=== PATIENT | female | born 1935 | race Hispanic/Latino ===

== ENCOUNTER 2016-12-10 16:53 | Emergency (ER) | payer MEDICARE ==
[2016-12-10 17:01] VITALS: BMI 35.2
[2016-12-10 17:04] VITALS: TEMP 98.3
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
[2016-12-10 17:39] VITALS: BP 132/67
[2016-12-10 17:42] VITALS: PULSE 94; RESP 16; O2SAT 98
== END 2016-12-10 17:44 | disposition home or self-care (01) ==
LOC: ED 16:53
DX: L60.8 Other nail disorders (principal)

== ENCOUNTER 2017-01-26 10:02 | Inpatient (IN) | payer MEDICARE, OTHER ==
[2017-01-26 10:22] VITALS: BMI 36.1
[2017-01-26 10:43] LABS: BASO # 0.05 K/mm3 (0.0-2.0); BASO % 0.3 % (0.0-3.0); EOS # 0.2 (0.0-0.7); EOS % 0.9 % (1.5-5.0); GRAN # 13.47 (1.4-6.5); GRAN % 73.7 % (50.0-68.0); HEMATOCRIT 37.6 % (36.0-48.0); LYMPH % 16.1 % (22.0-35.0); MEAN CELL VOLUME 94.2 fl (80.0-105.0); MEAN CORPUSCULAR HEMOGLOBIN 32.1 pg (25.0-35.0); MEAN PLATELET VOLUME 10.3 fl (7.0-11.0); MONO # 1.7 (0.1-0.6); RED CELL DISTRIBUTION WIDTH 14.2 % (11.5-14.5); WHITE BLOOD COUNT 18.3 10^3/ul (4.5-11.0)
[2017-01-26 10:52] LABS: ALB/GLOB RATIO 1.4 (1.1-1.8); ALKALINE PHOSPHATASE 71 U/L (38-126); ALT/SGPT 40 U/L (7-56); AST/SGOT 22 U/L (14-36); BILIRUBIN,TOTAL 0.4 mg/dL (0.2-1.3); BLOOD UREA NITROGEN 14 mg/dL (7-21); CALCIUM 9.1 mg/dL (8.4-10.5); CARBON DIOXIDE 22 mmol/L (21-33); CHLORIDE 104 mmol/L (98-107); GFR AFRICAN-AMERICAN > 60; GLUCOSE,RANDOM 100 mg/dL (70-110); POTASSIUM 4.2 mmol/L (3.6-5.0); SODIUM 138 mmol/L (132-148); TOTAL PROTEIN 6.9 g/dL (5.8-8.3)
[2017-01-26 11:10] LABS: PARTIAL THROMBOPLASTIN TIME 39.5 Seconds (23.7-30.8)
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
[2017-01-26 11:22] LABS: INR 4.09 (0.93-1.08)
--- NOTE | 2017-01-26 12:27 | US ---
PROCEDURE: Left lower extremity venous US HISTORY: Leg pain and swelling. Evaluate for DVT. PHYSICIAN(S): Roni Rosales MD. TECHNIQUE: Duplex sonography and color-flow Doppler with graded compression were used to evaluate the deep venous system of the left lower extremity. The exam is somewhat limited by edema FINDINGS: The visualized deep venous system of the left lower extremity is sonographically normal and compressible. Normal wave forms and augmentation are seen. There is no sonographic evidence for deep venous thrombosis in the visualized segments of the left lower extremity. IMPRESSION: 1. No sonographic evidence for deep venous thrombosis in the visualized segments of the left lower extremity.
--- NOTE | 2017-01-26 12:43 | RAD ---
PROCEDURE: Left Hip and pelvis X-ray Radiographs. HISTORY: hip pain COMPARISON: None. FINDINGS: BONES: Normal. No fracture. JOINTS: Normal. SOFT TISSUES: Normal. OTHER FINDINGS: None. IMPRESSION: Normal left hip radiographs.
--- NOTE | 2017-01-26 12:44 | RAD ---
PROCEDURE: Left Knee Radiographs. HISTORY: Pain. COMPARISON: None. FINDINGS: BONES: Normal. No fracture. JOINTS: Normal. No osteoarthritis. JOINT EFFUSION: None. OTHER FINDINGS: The patellar view is unremarkable IMPRESSION: Normal radiographs of the left knee.
[2017-01-26 12:45] LABS: URINE BILIRUBIN NEGATIVE (NEGATIVE); URINE BLOOD TRACE-INTACT (NEGATIVE); URINE GLUCOSE (UA) NEGATIVE (NEGATIVE); URINE KETONE NEGATIVE (NEGATIVE); URINE LEUKOCYTE ESTERASE TRACE Leu/uL (NEGATIVE); URINE PROTEIN TRACE mg/dL (<30 mg/dL); URINE UROBILINOGEN 0.2 E.U./dL (<1 E.U./dL)
[2017-01-26 12:46] LABS: URINE COLOR YELLOW (YELLOW)
[2017-01-26 13:02] LABS: URINE APPEARANCE SL CLOUDY (CLEAR); URINE BACTERIA FEW (NEG); URINE RBC 0 - 2 /hpf (0-2)
[2017-01-26] MEDS ORDERED: cefTRIAXone 1 gm 1 GM/100 ML BAG IVPB STA (14:20)
[2017-01-26] MEDS ORDERED: Vancomycin 1gm in NS 250ml 1 GM/250 ML BAG IVPB STA (14:20)
[2017-01-26] MEDS: Metoprolol Succinate 100 mg XL Tab PO SCH (14:23)
[2017-01-26] MEDS ORDERED: Pneumococcal 23-Valent Vaccine IM ONE (17:33)
[2017-01-26] MEDS: BRIMONIDINE TARTRATE OP SCH (17:39)
[2017-01-26] MEDS: TIMOLOL OP SCH (17:39)
[2017-01-27 07:27] LABS: HEMATOCRIT 37.1 % (36.0-48.0); MEAN CELL VOLUME 94.4 fl (80.0-105.0); MEAN CORPUSCULAR HEMOGLOBIN 31.8 pg (25.0-35.0); MEAN CORPUSCULAR HGB CONC 33.7 g/dl (31.0-37.0); MEAN PLATELET VOLUME 10.8 fl (7.0-11.0); RED CELL DISTRIBUTION WIDTH 14.4 % (11.5-14.5); WHITE BLOOD COUNT 15.5 10^3/ul (4.5-11.0)
[2017-01-27 07:35] LABS: ALB/GLOB RATIO 1.3 (1.1-1.8); ALKALINE PHOSPHATASE 74 U/L (38-126); ALT/SGPT 34 U/L (7-56); AST/SGOT 26 U/L (14-36); BILIRUBIN,TOTAL 0.7 mg/dL (0.2-1.3); BLOOD UREA NITROGEN 13 mg/dL (7-21); CALCIUM 9.1 mg/dL (8.4-10.5); CARBON DIOXIDE 26 mmol/L (21-33); CHLORIDE 104 mmol/L (95-110); GFR AFRICAN-AMERICAN > 60; GLUCOSE,RANDOM 95 mg/dL (70-110); POTASSIUM 4.8 mmol/L (3.6-5.0); SODIUM 138 mmol/L (132-148); TOTAL PROTEIN 6.7 g/dL (5.8-8.3)
[2017-01-27] MEDS: Metoprolol Succinate 100 mg XL Tab PO SCH (09:23)
[2017-01-27] MEDS: diltiaZEM 240 mg/24 Hours CD Cap PO SCH (09:24)
[2017-01-27] MEDS: BRIMONIDINE TARTRATE OP SCH ×2 (09:44→17:44)
[2017-01-27] MEDS: TIMOLOL OP SCH ×2 (09:44→17:44)
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
[2017-01-27] MEDS ORDERED: Iohexol 240 (50 ml) ONE (12:19)
--- NOTE | 2017-01-27 15:20 | CT ---
PROCEDURE: CT Abdomen and Pelvis without IV contrast. HISTORY: wbc 18k COMPARISON: None available. TECHNIQUE: Contiguous axial images of the abdomen and pelvis. Oral contrast was administered. No IV contrast given. Coronal and Sagittal reformats generated and reviewed. Radiation dose: Total exam DLP = 1040.76 mGy-cm. This CT exam was performed using one or more of the following dose reduction techniques: Automated exposure control, adjustment of the mA and/or kV according to patient size, and/or use of iterative reconstruction technique. FINDINGS: There is limited evaluation of the solid organs without the administration of IV contrast. LOWER THORAX: No visible consolidation, pleural effusion, or pneumothorax. Small hiatal hernia. Gastroesophageal reflux. LIVER: Hypoattenuation of the liver compatible with hepatic steatosis. GALLBLADDER AND BILE DUCTS: Unremarkable unenhanced appearance. PANCREAS: Unremarkable unenhanced appearance. SPLEEN: 13 mm probable splenule. Otherwise unremarkable unenhanced appearance. ADRENALS: Unremarkable unenhanced appearance. KIDNEYS AND URETERS: Mild bilateral perinephric stranding, nonspecific. No hydronephrosis or obstructing renal calculus. BLADDER: The urinary bladder appears unremarkable. REPRODUCTIVE: Uterus is present. APPENDIX: The appendix appears within normal limits of caliber. No secondary signs of acute appendicitis. BOWEL: The stomach is nondistended. The bowel loops appear within normal limits of caliber without evidence of intestinal obstruction. Diverticulosis without CT evidence of acute diverticulitis. PERITONEUM: No significant free fluid. No definite free air. LYMPH NODES: No bulky lymphadenopathy identified. VASCULATURE: Scattered atherosclerotic calcifications. No aortic aneurysm. BONES: Osseous demineralization. Degenerative changes. OTHER FINDINGS: None. IMPRESSION: Hypoattenuation of the liver compatible with hepatic steatosis. Mild nonspecific bilateral perinephric stranding. No hydronephrosis or obstructing calculus. Diverticulosis without CT evidence of acute diverticulitis. Small hiatal hernia. Gastroesophageal reflux.
[2017-01-27] MEDS: Oxycodone/Acetaminophen 5/325 mg Tab PO PRN (16:51)
[2017-01-27] MEDS: Piperacillin/Tazobact 3.375 gm 100 ML IVPB SCH ×2 (17:44→23:03)
--- NOTE | 2017-01-27 20:40 | CT ---
EXAM: CT Left Lower Extremity Without Intravenous Contrast, Knee EXAM DATE/TIME: 01/27/2017 5:34 PM CLINICAL HISTORY: 81 years old, female; Pain; Knee; Left; Additional info: R/O hemotoma TECHNIQUE: Axial computed tomography images of the left knee without intravenous contrast. All CT scans at this facility use one or more dose reduction techniques, viz.: automated exposure control; ma/kV adjustment per patient size (including targeted exams where dose is matched to indication; i.e. head); or iterative reconstruction technique. Coronal and sagittal reformatted images were created and reviewed. COMPARISON: None is available currently. FINDINGS: BONES/JOINTS: Moderate-sized knee joint effusion is seen. This has a CT attenuation of 60 Hounsfield units, higher than expected for simple fluid. There is no fat/fluid level to suggest a lipohemarthrosis. Mild osteoarthritic changes, involving all 3 joint compartments. Bony structures appear demineralized. No acute fractures are seen. No evidence of acute dislocation. No evidence of erosions or suspicious focal bony lesions. SOFT TISSUES: Mild, diffuse subcutaneous fat stranding, including stranding of the deep popliteal fossa fat. No evidence of soft tissue hematoma. No evidence of focal soft tissue fluid collection/abscess. No evidence of soft tissue gas. IMPRESSION: - Moderate knee joint effusion. This is hyperdense, a finding which can be seen in the setting of a hemarthrosis or other complex joint fluid. - Mild, diffuse subcutaneous fat stranding, which could be due to soft tissue contusion or cellulitis. Recommend clinical correlation. - Otherwise, no evidence of significant acute process. - No acute fractures or other acute bony abnormality visualized. - Mild osteoarthritic changes. - See above for remaining findings.
[2017-01-27 23:57] LABS: URINE BILIRUBIN NEGATIVE (NEGATIVE); URINE BLOOD TRACE-INTACT (NEGATIVE); URINE GLUCOSE (UA) NEGATIVE (NEGATIVE); URINE KETONE NEGATIVE (NEGATIVE); URINE LEUKOCYTE ESTERASE NEGATIVE Leu/uL (NEGATIVE); URINE PROTEIN NEGATIVE mg/dL (<30 mg/dL); URINE UROBILINOGEN 0.2 E.U./dL (<1 E.U./dL)
[2017-01-28] LABS: URINE APPEARANCE CLEAR (CLEAR)
--- NOTE | 2017-01-28 04:12 | HP ---
CHIEF COMPLAINT AND HISTORY OF PRESENT ILLNESS: This is an 81-year-old female who comes into the hospital with the complaints of left-sided pain and swelling. She states she woke up in the morning and was having left leg pain. She states that the pain was severe. She had difficulty in ambulating. She had taken Tylenol for the pain. She says that she had no dysuria or frequency. No abdominal or back pain. No weakness in the arms or the legs. She denied any fevers or chills. She said the pain is unrelieved involving the left hip. REVIEW OF SYSTEMS: All other review of symptoms are within normal limits except as mentioned. ALLERGIES: ACETAMINOPHEN AND CODEINE. CURRENT MEDICATIONS: Tranxene, Coumadin, Combivent, allopurinol, diltiazem, meclizine, Toprol, vitamin A, and Neurontin. SOCIAL HISTORY: She does not smoke. She denies drugs or alcohol. PAST MEDICAL HISTORY: Atrial fibrillation, hypertension, osteoarthritis. PHYSICAL EXAMINATION: VITAL SIGNS: She had a temperature of 97.8, pulse rate 52, blood pressure is 142/95, respirations 18, O2 saturation 96%. DIAGNOSTIC DATA: 1. X ray of the left knee is normal. 2. Left foot x-ray is normal. 3. Lower extremity Doppler shows no DVT. 4. CT scan of the abdomen and pelvis done shows hypoattenuation of the liver compatible with the hepatosteatosis. No hydro or obstructing calculus. There is mild perinephric stranding. Diverticulosis is noted without diverticulitis. LABORATORY DATA: White count of 18.3, hemoglobin 12.8. Chemistry shows sodium 138, potassium 4.2, creatinine is 1.5. Urine shows ketones are negative, nitrites are negative. INR is 4.09. ASSESSMENT: 1. Sepsis. 2. Left leg pain. 3. Fatty Liver 4. Atrial fibrillation, on Coumadin. 5. Neuropathy 6. Diverticulosis PLAN: The patient is going to be admitted to the hospital. She was seen by Orthopedics. No acute issues. We will have Infectious Disease see the patient. She was given Rocephin in the ER. The patient is on Zosyn for antibiotics. She is also asking for Percocet. The patient is on a hospital diet. Blood cultures and urine cultures have been ordered. She has an elevated INR. She is going to need Physical Therapy evaluation. Jose Giordano MD [facility]
[2017-01-28] MEDS: Piperacillin/Tazobact 3.375 gm 100 ML IVPB SCH ×4 (05:18→23:04)
--- NOTE | 2017-01-28 05:38 | CON ---
DATE: 01/27/2017 LOCATION: The patient seen early this morning in room 560, bed 1. CHIEF COMPLAINT: Left leg pain and edema times several days. HISTORY OF PRESENT ILLNESS: This is an 81-year-old female with history of coronary artery disease, cardiac arrhythmia, spinal stenosis, atrial fibrillation, hypertension, neuropathy, and history of left breast cyst. He is allergic to CODEINE, PHOSPHATE. He was admitted with diagnosis of urinary tract infection, infectious disease consultation requested. The patient states that she does have hematuria, but no dysuria or frequency. She denies any fevers or chills. No nausea. No chest pain. No abdominal pain, diarrhea or constipation. PAST MEDICAL HISTORY: Significant for coronary artery disease, cardiac arrhythmia, spinal stenosis, atrial fibrillation, hypertension, and neuropathy. PAST SURGICAL HISTORY: Significant for left breast cyst. ALLERGIES: THE PATIENT'S ALLERGIC TO CODEINE IS NOTED. MEDICATIONS AT HOME: Include that the patient is on Coumadin, metoprolol, meclizine, Neurontin, calcium, and Zyloprim. PHYSICAL EXAMINATION: GENERAL: The patient is in bed. VITAL SIGNS: Temperature of 98, heart rate 90, blood pressure is 140/90, respiratory rate of 18. HEENT: Unremarkable. NECK: Supple. LUNGS: Decreased breath sounds. ABDOMEN: Soft and nontender. No organomegaly. No rebound. No guarding. No masses. Of note, in the emergency room, the patient's heart rate was 99. LABORATORY DATA: Reveals a white count of 18,300, hemoglobin of 12, and platelets of 231. Coagulation reveals INR of 4.0. Chemistry reveals BUN of 13, creatinine of 0.6. Urinalysis is noted only 5-10 WBCs with few bacteria. Blood cultures have no growth. Urine cultures are pending. The patient was given vancomycin and Rocephin in the emergency room. Dr. Dysno's consultation is reviewed. The patient has mild nonspecific bilateral perinephric stranding. No hydronephrosis, diverticulosis without diverticulitis, hypotension of the liver compatible with hepatic steatosis. ASSESSMENT AND PLAN: The patient is an 81-year-old female with coronary artery disease, cardiac arrhythmia, spinal stenosis, atrial fibrillation, hypertension with unremarkable urinalysis actually with a 5-10 WBCs and few bacteria. There is some blood and protein and leukocyte esterase; however, CAT reveals perinephric stranding consistent with a pyelonephritis. We will treat the patient with Zosyn. Follow WBC count, repeat urinalysis. Check on her urine culture. Check on her final blood culture, which should not explain why the patient has pain in her leg. We will order a CAT scan of her left leg. She had an ultrasound, which is negative for deep venous thrombosis. We will order a CAT scan of the left leg to rule out a hematoma since the patient's INR is 4 and we will follow closely with you. We will check on the tomorrow's WBC count. Luca Baird MD
[2017-01-28 07:55] LABS: ALB/GLOB RATIO 1.2 (1.1-1.8); ALKALINE PHOSPHATASE 71 U/L (38-126); ALT/SGPT 29 U/L (7-56); AST/SGOT 21 U/L (14-36); BILIRUBIN,TOTAL 0.9 mg/dL (0.2-1.3); BLOOD UREA NITROGEN 16 mg/dL (7-21); CALCIUM 9.2 mg/dL (8.4-10.5); CARBON DIOXIDE 26 mmol/L (21-33); CHLORIDE 103 mmol/L (95-110); GFR AFRICAN-AMERICAN > 60; GLUCOSE,RANDOM 110 mg/dL (70-110); POTASSIUM 4.9 mmol/L (3.6-5.0); SODIUM 137 mmol/L (132-148); TOTAL PROTEIN 6.6 g/dL (5.8-8.3)
[2017-01-28 08:19] LABS: INR 1.64 (0.93-1.08)
[2017-01-28 08:21] LABS: HEMATOCRIT 34.9 % (36.0-48.0); MEAN CELL VOLUME 94.1 fl (80.0-105.0); MEAN CORPUSCULAR HEMOGLOBIN 31.3 pg (25.0-35.0); MEAN CORPUSCULAR HGB CONC 33.2 g/dl (31.0-37.0); MEAN PLATELET VOLUME 10.9 fl (7.0-11.0); RED CELL DISTRIBUTION WIDTH 14.3 % (11.5-14.5); WHITE BLOOD COUNT 13.7 10^3/ul (4.5-11.0)
[2017-01-28] MEDS: diltiaZEM 240 mg/24 Hours CD Cap PO SCH (09:37)
[2017-01-28] MEDS: Oxycodone/Acetaminophen 5/325 mg Tab PO PRN ×2 (09:38→23:04)
[2017-01-28] MEDS: Metoprolol Succinate 100 mg XL Tab PO SCH (09:38)
[2017-01-28] MEDS: BRIMONIDINE TARTRATE OP SCH ×2 (10:31→17:23)
[2017-01-28] MEDS: TIMOLOL OP SCH ×2 (10:31→17:23)
[2017-01-28] MEDS: POLYETHYLENE GLYCOL 3350 17 GM/Dose PACKET PO SCH ×2 (10:31→17:30)
--- NOTE | 2017-01-28 10:56 | CP.PCM.PN ---
Subjective - Date & Time of Evaluation Date of Evaluation: 01/28/17 Time of Evaluation: 10:45 - Subjective Subjective: S- pt OOB and comfortable at time of encounter Objective - Vital Signs/Intake and Output Vital Signs (last 24 hours): Temp Pulse Resp BP Pulse Ox 97.7 F 97 H 20 137/69 96 01/28/17 07:30 01/28/17 09:38 01/28/17 07:30 01/28/17 09:38 01/28/17 07:30 Intake and Output: 01/28/17 01/28/17 06:59 18:59 Intake Total 400 Output Total 300 Balance 100 - Medications Medications: Current Medications Acetaminophen (Tylenol 325mg Tab) 650 mg PO Q4H PRN PRN Reason: Pain, Mild (1-3) Last Admin: 01/27/17 20:08 Dose: 650 mg Allopurinol (Zyloprim) 100 mg PO DAILY [facility] Last Admin: 01/28/17 09:36 Dose: 100 mg Diltiazem HCl (Cardizem Cd) 240 mg PO DAILY [facility] Last Admin: 01/28/17 09:37 Dose: 240 mg Gabapentin (Neurontin) 100 mg PO DAILY [facility] PRN Reason: Protocol Last Admin: 01/28/17 09:37 Dose: 100 mg Piperacillin Sod/Tazobactam Sod (Zosyn 3.375 In Ns 100ml) 100 mls @ 200 mls/hr IVPB Q6 [facility] PRN Reason: Protocol Stop: 02/05/17 18:01 Last Admin: 01/28/17 05:18 Dose: 200 mls/hr Metoprolol Succinate (Toprol Xl) 100 mg PO DAILY [facility] Last Admin: 01/28/17 09:38 Dose: 100 mg Non-Formulary Medication (Brimonidine Tartrate/Timolol [Combigan Eye Drops]) 5 ml OP BID [facility] Last Admin: 01/28/17 10:31 Dose: Not Given Oxycodone/Acetaminophen (Percocet 5/325 Mg Tab) 1 tab PO Q4H PRN PRN Reason: Pain, severe (8-10) Stop: 01/30/17 12:56 Last Admin: 01/28/17 09:38 Dose: 1 tab Polyethylene Glycol (Miralax) 17 gm PO BID [facility] Last Admin: 01/28/17 10:31 Dose: 17 gm Tramadol HCl (Ultram) 25 mg PO Q6 PRN PRN Reason: Pain, moderate (4-7) Last Admin: 01/27/17 05:02 Dose: 25 mg Warfarin Sodium (Coumadin) 3 mg PO 1800 [facility] Last Admin: 01/26/17 18:15 Dose: Not Given - Labs Labs: 01/28/17 06:50 01/28/17 06:50 PT 17.7 Seconds (9.9-11.8) H 01/28/17 06:50 INR 1.64 (0.93-1.08) H 01/28/17 06:50 APTT 39.5 Seconds (23.7-30.8) H 01/26/17 10:30 - Additional Findings Additional findings: oSYSTEMIC- WNL mUSCULOSKEKLTAL STANCE/GAIT- DFERRED PT oob AT TIME OF ENCOUNTER n/v INTACT \CALFTENDERNESS PERSISTS UNILATERAL EDEMA PERSISTS NO GROSS DISCOMFORT IN KNEE TODAY Assessment and Plan - Assessment and Plan (Free Text) Assessment: A-1) unilateral R lower ext edema 2)primary O/A R knee/ R hip P- as per DR Adam recommend vascular consult knee O/A may have to be addressed later, surgically
--- NOTE | 2017-01-28 12:12 | PN ---
DATE: 01/28/2017 SUBJECTIVE: The patient is in bed, in no acute distress, nontoxic. The patient was seen earlier this morning in room 560. PHYSICAL EXAMINATION: VITAL SIGNS: Temperature 98, blood pressure 130/60, and respiratory rate 16. HEENT: Unremarkable. NECK: Supple. LUNGS: Decreased breath sounds. HEART: Normal S1 and S2. ABDOMEN: Soft and nontender. LABORATORY DATA: Reveals the patient's white count is 13,700 and hemoglobin is 11. Chemistry reveals a BUN of 16, creatinine of 0.7. Urinalysis is noted. The patient had a CAT scan of the abdomen and pelvis and the CAT scan of the lower extremity with a moderate knee effusion, hyperdense findings, hemarthrosis or complex joint fluid, which could be due to soft tissue infection cellulitis. ASSESSMENT AND PLAN: An 81-year-old female with coronary artery disease, cardiac arrhythmia, spinal stenosis, atrial fibrillation, hypertension, unremarkable urinalysis presenting with CAT scan that is revealing perinephric stranding consistent with a pyelonephritis and complaining of left leg pain and edema from several days. Workup in progress. The patient with systemic inflammatory response syndrome with no obvious source of infection. White count appears to be improving down to 13,000 and possible sepsis and pyelonephritis, also urinalysis is not significant and awaiting for urine culture. Blood cultures have been reported to be negative. We will check on the urine cultures. Currently on Zosyn for sepsis and systemic inflammatory response syndrome with a possible pyelonephritis by imaging. Etiology of the left leg pain is not entirely clear. Luca Baird MD
--- NOTE | 2017-01-28 21:02 | PN ---
DATE: 01/28/2017 SUBJECTIVE: The patient has no complaints of any chest pain. No shortness of breath. No headache. PHYSICAL EXAMINATION: VITAL SIGNS: Temperature is 97.7, pulse of 97, blood pressure is 137/69, respiration is 20. GENERAL: The patient is lying in bed, flat, comfortable. HEENT: No oral lesion. Anicteric sclerae. Moist mucosa. NECK: No JVD, adenopathy, or thyromegaly. CARDIOVASCULAR: S1 and S2, regular. No murmurs, rubs, or gallops. LUNGS: Clear to auscultation bilaterally. No wheeze, rales, or rhonchi. ABDOMEN: Bowel sounds are positive, soft, nontender and nondistended. EXTREMITIES: No cyanosis, clubbing or edema. LABORATORY DATA: White count of 13.7, hemoglobin 11.6. Creatinine is 0.7. Leg CT done showed moderate knee joint effusion. There is subcutaneous fat stranding and the subcutaneous fat. ASSESSMENT: 1. Left knee effusion. 2. Left knee osteoarthritis. 3. Sepsis. 4. Diverticulosis. 5. Atrial fibrillation, on Coumadin. 6. Neuropathy. 7. Fatty liver. PLAN: The patient is currently on Cardizem, this will be continued; the patient is on Percocet for pain. She is on metoprolol daily; I do not want to continue with Ultram for pain. She is on Zosyn for antibiotics. She had blood cultures that are negative. She is being seen by Physical Therapy. The patient has continued evaluation and TCU transfer if she qualifies. She is willing to go. Jose Giordano MD
[2017-01-29] MEDS: Oxycodone/Acetaminophen 5/325 mg Tab PO PRN ×2 (05:03→11:53)
[2017-01-29] MEDS: Piperacillin/Tazobact 3.375 gm 100 ML IVPB SCH ×4 (05:03→23:59)
[2017-01-29 08:03] LABS: INR 1.27 (0.93-1.08)
[2017-01-29] MEDS: BRIMONIDINE TARTRATE OP SCH ×2 (09:06→17:10)
[2017-01-29] MEDS: TIMOLOL OP SCH ×2 (09:06→17:10)
[2017-01-29] MEDS: diltiaZEM 240 mg/24 Hours CD Cap PO SCH (09:07)
[2017-01-29] MEDS: POLYETHYLENE GLYCOL 3350 17 GM/Dose PACKET PO SCH ×2 (09:07→18:04)
[2017-01-29] MEDS: Metoprolol Succinate 100 mg XL Tab PO SCH (09:08)
--- NOTE | 2017-01-29 10:56 | PN ---
DATE: 01/29/2017 SUBJECTIVE: The patient has no complaints of any chest pain. No shortness of breath. She has no headache. PHYSICAL EXAMINATION: VITAL SIGNS: Temperature is 97.8, pulse of 85, blood pressure is 151/78, and respirations are 20. GENERAL: The patient is lying in bed, flat, comfortable. HEENT: No oral lesion. Anicteric sclerae. Moist mucosa. NECK: No JVD, adenopathy, or thyromegaly. CARDIOVASCULAR: S1 and S2, regular. No murmurs, rubs, or gallops. LUNGS: Clear to auscultation bilaterally. No wheeze, rales, or rhonchi. ABDOMEN: Bowel sounds are positive, soft, nontender and nondistended. EXTREMITIES: No cyanosis, clubbing or edema. ASSESSMENT: 1. Left knee effusion. 2. Left knee arthritis. 3. Sepsis, resolved. 4. Diverticulosis. 5. Atrial fibrillation, on Coumadin. 6. Neuropathy. 7. Fatty liver. PLAN: The patient is currently comfortable and has been followed by Dr. Dyson. She is on Coumadin. The patient may need a cortisone shot the patient is asking for one. The patient's INR is subtherapeutic at 1.2. She is on 3 mg of Coumadin, it has been on hold and I will restart that. The patient is on metoprolol. She is on Ultram for pain. She is on Zosyn for antibiotic. She is on allopurinol. She is going to be needing TCU. I will place TCU evaluation, we will await if she has a bed. Jose Giordano MD
--- NOTE | 2017-01-29 18:11 | PN ---
DATE: 01/29/2017 SUBJECTIVE: The patient is in bed, in no acute distress, was seen earlier today. No fevers. PHYSICAL EXAMINATION VITAL SIGNS: Temperature is 98, blood pressure is 150/70, respiratory rate of 20. HEENT: Unremarkable. NECK: Supple. LUNGS: Decreased breath sounds. HEART EXAM: Normal S1 and S2. ABDOMINAL EXAMINATION: Soft. LABORATORY EXAMINATION: Reveals a white count of 13,700; hemoglobin of 11. Chemistries reveal a BUN of 16, creatinine of 0.7. Urinalysis is noted. Microbiology reveals the blood cultures are negative, urine culture has mixed organisms and Dr. Dyson's note is reviewed from yesterday. ASSESSMENT AND PLAN: This is an 81-year-old female with coronary artery disease, cardiac arrhythmia, spinal stenosis, atrial fibrillation, hypertension, was admitted with left leg pain and left leg edema; thus far, the etiology of that has not been determined. The patient also had a CAT scan of the abdomen and pelvis which showed liver compatible with hepatic steatosis and nonspecific perinephric stranding. The patient did have hematuria, although not significant urinalysis, only 5 to 10 wbc's and mixed organism. Currently, on Zosyn, appears to be responding and the white count appears to be improving. We will treat the pyelonephritis at this time and it does not explain the left leg pain, and she also had an extremity CAT scan, the lower left extremity, which showed mild, diffuse, subcutaneous fat of stranding. We will follow with you and follow the wbc's and final culture results. Luca Baird MD
[2017-01-30] MEDS: Oxycodone/Acetaminophen 5/325 mg Tab PO PRN (02:17)
[2017-01-30] MEDS: Piperacillin/Tazobact 3.375 gm 100 ML IVPB SCH ×4 (06:09→23:00)
[2017-01-30 07:10] LABS: MEAN CELL VOLUME 94.8 fl (80.0-105.0); MEAN CORPUSCULAR HEMOGLOBIN 31.2 pg (25.0-35.0); MEAN CORPUSCULAR HGB CONC 32.9 g/dl (31.0-37.0); MEAN PLATELET VOLUME 10.5 fl (7.0-11.0); RED CELL DISTRIBUTION WIDTH 14.5 % (11.5-14.5); WHITE BLOOD COUNT 12.3 10^3/ul (4.5-11.0)
[2017-01-30 07:44] LABS: ALB/GLOB RATIO 1.1 (1.1-1.8); ALKALINE PHOSPHATASE 64 U/L (38-126); ALT/SGPT 26 U/L (7-56); AST/SGOT 27 U/L (14-36); BILIRUBIN,TOTAL 0.8 mg/dL (0.2-1.3); BLOOD UREA NITROGEN 11 mg/dL (7-21); CALCIUM 8.8 mg/dL (8.4-10.5); CARBON DIOXIDE 26 mmol/L (21-33); CHLORIDE 107 mmol/L (98-107); GFR AFRICAN-AMERICAN > 60; GLUCOSE,RANDOM 96 mg/dL (70-110); POTASSIUM 4.4 mmol/L (3.6-5.0); SODIUM 141 mmol/L (132-148); TOTAL PROTEIN 6.2 g/dL (5.8-8.3)
[2017-01-30] MEDS: diltiaZEM 240 mg/24 Hours CD Cap PO SCH (10:16)
[2017-01-30] MEDS: TIMOLOL OP SCH ×2 (10:16→18:18)
[2017-01-30] MEDS: BRIMONIDINE TARTRATE OP SCH ×2 (10:16→18:18)
[2017-01-30] MEDS: POLYETHYLENE GLYCOL 3350 17 GM/Dose PACKET PO SCH ×2 (10:17→18:19)
[2017-01-30] MEDS: Metoprolol Succinate 100 mg XL Tab PO SCH (10:18)
--- NOTE | 2017-01-30 14:10 | CP.PCM.PN ---
Subjective - Date & Time of Evaluation Date of Evaluation: 01/30/17 Time of Evaluation: 10:40 - Subjective Subjective: Comfortable on a chair, still with left knee pain but as per patient is able to bear more weight on her left leg, but still not able to fully flex the left knee. No fevers, no flank pain, no nausea or vomiting, no dysuria currently. Objective - Vital Signs/Intake and Output Vital Signs (last 24 hours): Temp Pulse Resp BP Pulse Ox 98.5 F 72 18 135/90 95 01/30/17 07:30 01/30/17 10:16 01/30/17 07:30 01/30/17 10:16 01/30/17 07:30 Intake and Output: 01/30/17 01/30/17 06:59 18:59 Intake Total 900 Balance 900 - Medications Medications: Current Medications Acetaminophen (Tylenol 325mg Tab) 650 mg PO Q4H PRN PRN Reason: Pain, Mild (1-3) Last Admin: 01/30/17 10:18 Dose: 650 mg Allopurinol (Zyloprim) 100 mg PO DAILY [facility] Last Admin: 01/30/17 10:19 Dose: 100 mg Diltiazem HCl (Cardizem Cd) 240 mg PO DAILY [facility] Last Admin: 01/30/17 10:16 Dose: 240 mg Gabapentin (Neurontin) 100 mg PO DAILY [facility] PRN Reason: Protocol Last Admin: 01/30/17 10:17 Dose: 100 mg Piperacillin Sod/Tazobactam Sod (Zosyn 3.375 In Ns 100ml) 100 mls @ 200 mls/hr IVPB Q6 [facility] PRN Reason: Protocol Stop: 02/05/17 18:01 Last Admin: 01/30/17 11:15 Dose: 200 mls/hr Metoprolol Succinate (Toprol Xl) 100 mg PO DAILY [facility] Last Admin: 01/30/17 10:18 Dose: 100 mg Non-Formulary Medication (Brimonidine Tartrate/Timolol [Combigan Eye Drops]) 5 ml OP BID [facility] Last Admin: 01/30/17 10:16 Dose: Not Given Polyethylene Glycol (Miralax) 17 gm PO BID [facility] Last Admin: 01/30/17 10:17 Dose: 17 gm Tramadol HCl (Ultram) 25 mg PO Q6 PRN PRN Reason: Pain, moderate (4-7) Last Admin: 01/27/17 05:02 Dose: 25 mg Warfarin Sodium (Coumadin) 3 mg PO 1800 [facility] PRN Reason: Protocol Last Admin: 01/29/17 18:03 Dose: 3 mg - Labs Labs: 01/30/17 06:55 01/30/17 06:55 PT 13.7 Seconds (9.9-11.8) H 01/29/17 07:40 INR 1.27 (0.93-1.08) H 01/29/17 07:40 APTT 39.5 Seconds (23.7-30.8) H 01/26/17 10:30 - Constitutional Appears: Non-toxic, No Acute Distress - Head Exam Head Exam: NORMAL INSPECTION - Neck Exam Neck Exam: absent: Meningismus - Respiratory Exam Respiratory Exam: Decreased Breath Sounds - Cardiovascular Exam Cardiovascular Exam: +S1, +S2 - GI/Abdominal Exam GI & Abdominal Exam: Soft. absent: Tenderness - Extremities Exam Additional comments: left knee with some swelling but no fluid wave noted, no fluctuance, no erythema , mildly tender to palpation on the anterior portion of the left knee Assessment and Plan - Assessment and Plan (Free Text) Plan: Assessment R/O urinary tract infection with perinephric stranding noted on CT scan of the abdomen and pelvis left knee swelling, R/O due to osteoarthritis, R/O ligamentous or meniscal injury CAD atrial fibrillation CAD spinal stenosis HTN obesity with BMI 36 Plan Continue patient on Zosyn (day 4); reviewed CT leg - will get MRI of the left knee reviewed Ortho evaluation and recommendations will monitor clinically
[2017-01-30] MEDS ORDERED: Oxycodone/Acetaminophen 5/325 mg Tab PO PRN (18:06)
--- NOTE | 2017-01-31 02:51 | PN ---
DATE: 01/30/2017 HISTORY OF PRESENT ILLNESS: Ms. Barrientos is an 81-year-old female admitted with left-sided knee pain. She also had fever. No cough with expectoration. UA is negative. Urine culture and blood cultures are negative. She had CAT scan of the left knee, which showed joint infusions that was a complex joint fluid on CAT scan suggestive of may be hemarthrosis. She is still in difficulty in ambulating and pain in the left knee. She decline to take Ultram for pain. Percocet was requested. She is okay with Percocet. REVIEW OF SYSTEM: As per HPI, rest of 12-point review of system reviewed and negative. ALLERGIES: ACETAMINOPHEN AND CODEINE. CURRENT MEDICATIONS: Tylenol 650 mg q. 4 hours p.r.n., Cardizem daily, gabapentin 100 mg p.o. daily, metoprolol 100 mg daily, Percocet p.r.n., Zosyn q. 6 hours, and Coumadin 3 mg daily. PHYSICAL EXAMINATION: GENERAL: Comfortable in bed, in no acute distress. VITAL SIGNS: Temperature 97.3, heart rate is 99 per minute, blood pressure 144/60, respiratory rate 20 per minute, and oxygen saturation 99% on room air. HEENT: Normal. NECK: Supple. No lymphadenopathy. CHEST: Air entry present equal and bilateral. No added sounds. CARDIOVASCULAR: S1 and S2 normal. No murmur. No gallop. ABDOMEN: Soft and nontender. No hepatosplenomegaly. EXTREMITIES: No edema. Left knee swollen nontender. Temperature not raised. NEURO: Intact. No deficit. LABORATORY DATA: Reveals a white count 12.3, hemoglobin of 10.2, hematocrit 31, and platelet count 199. Sodium 141, potassium 4.1, and creatinine 0.6. INR 1.7. ASSESSMENT: 1. Left knee effusion. 2. Left knee pain. 3. Leukocytosis. 4. Anemia. 5. Peripheral neuropathy. 6. Hypertension. 7. Atrial fibrillation. PLAN: We will continue Ultram p.r.n. for pain. Continue IV antibiotics as per ID, Zosyn. We will continue beta-adelfo 100 mg daily. Continue diltiazem 240 mg daily, Neurontin 100 mg daily, and allopurinol 100 mg daily. We will get orthopedic consultation with Dr. Fortune. May be local steroid injection will help with the knee pain. Unlikely that is septic knee. Continue anticoagulation. Coumadin 3. INR is 1.9. Sofia Matthews MD
[2017-01-31] MEDS: Piperacillin/Tazobact 3.375 gm 100 ML IVPB SCH ×2 (04:59→11:59)
[2017-01-31 07:14] LABS: HEMATOCRIT 30.9 % (36.0-48.0); MEAN CELL VOLUME 95.1 fl (80.0-105.0); MEAN CORPUSCULAR HEMOGLOBIN 31.7 pg (25.0-35.0); MEAN CORPUSCULAR HGB CONC 33.3 g/dl (31.0-37.0); MEAN PLATELET VOLUME 10.7 fl (7.0-11.0); RED CELL DISTRIBUTION WIDTH 14.4 % (11.5-14.5); WHITE BLOOD COUNT 12.7 10^3/ul (4.5-11.0)
[2017-01-31 07:21] LABS: INR 1.23 (0.93-1.08)
[2017-01-31 07:23] LABS: BLOOD UREA NITROGEN 10 mg/dL (7-21); CALCIUM 9.3 mg/dL (8.4-10.5); CARBON DIOXIDE 26 mmol/L (21-33); CHLORIDE 107 mmol/L (98-107); GFR AFRICAN-AMERICAN > 60; GLUCOSE,RANDOM 103 mg/dL (70-110); POTASSIUM 4.3 mmol/L (3.6-5.0); SODIUM 143 mmol/L (132-148)
[2017-01-31 07:32] LABS: IRON 23 ug/dL (45-180)
[2017-01-31 08:58] VITALS: RESP 18
[2017-01-31] MEDS: TIMOLOL OP SCH (10:31)
[2017-01-31] MEDS: BRIMONIDINE TARTRATE OP SCH (10:31)
[2017-01-31] MEDS: diltiaZEM 240 mg/24 Hours CD Cap PO SCH (10:31)
[2017-01-31] MEDS: POLYETHYLENE GLYCOL 3350 17 GM/Dose PACKET PO SCH (10:32)
[2017-01-31] MEDS: Metoprolol Succinate 100 mg XL Tab PO SCH (10:32)
[2017-01-31] MEDS ORDERED: MethylPREDNISolone Depo 40 mg/ml Inj IM ONE (12:34)
[2017-01-31] MEDS ORDERED: Bupivacaine 0.5% Inj(30mL) IJ ONE (12:34)
[2017-01-31 16:04] VITALS: BP 167/76; PULSE 83; TEMP 98; O2SAT 95
--- NOTE | 2017-01-31 17:48 | CON ---
An 81-year-old female with complaint of left knee pain with past history of osteoarthritis with mild effusion, no evidence of fracture. X-ray shows early osteoarthritis of the left knee joint, mainly on the lateral side with sclerosis of the lateral tibial condyle, no arthritis of the hips on x-ray and the knee has moderate swelling and not enough to aspirate or cause too much difficulty. So, to help her knee pain, we injected her left knee with Depo-Medrol and Marcaine for symptomatic relief of the arthritis and mild effusion. Otherwise, she does need a walker or cane to ambulate with because she does have weakness and swelling in her legs for medical reasons. We will follow her in the office and I will write for therapy for ambulation with a walker or cane, but she should be able to go home to be follow as an outpatient for orthopedic diagnosis of osteoarthritis of her left knee treatable with periodic injections of Depo Medrol and strengthening exercise and ambulation with a walker. Magno Fortune DO
--- NOTE | 2017-01-31 18:07 | CP.PCM.PN ---
Subjective - Date & Time of Evaluation Date of Evaluation: 01/31/17 Time of Evaluation: 11:35 - Subjective Subjective: For steroid injection into her left knee for her osteoarthritis. No dysuria, no flank pain, no abdominal pain, no fevers. Objective - Vital Signs/Intake and Output Vital Signs (last 24 hours): Temp Pulse Resp BP Pulse Ox 97 F L 68 18 141/79 96 01/31/17 07:00 01/31/17 07:00 01/31/17 07:00 01/31/17 07:00 01/31/17 07:00 Intake and Output: 01/31/17 01/31/17 06:59 18:59 Intake Total 600 Output Total 2 Balance 598 - Medications Medications: Current Medications Acetaminophen (Tylenol 325mg Tab) 650 mg PO Q4H PRN PRN Reason: Pain, Mild (1-3) Last Admin: 01/31/17 04:54 Dose: 650 mg Allopurinol (Zyloprim) 100 mg PO DAILY [facility] Last Admin: 01/30/17 10:19 Dose: 100 mg Diltiazem HCl (Cardizem Cd) 240 mg PO DAILY [facility] Last Admin: 01/30/17 10:16 Dose: 240 mg Gabapentin (Neurontin) 100 mg PO DAILY [facility] PRN Reason: Protocol Last Admin: 01/30/17 10:17 Dose: 100 mg Piperacillin Sod/Tazobactam Sod (Zosyn 3.375 In Ns 100ml) 100 mls @ 200 mls/hr IVPB Q6 [facility] PRN Reason: Protocol Stop: 02/05/17 18:01 Last Admin: 01/31/17 04:59 Dose: 200 mls/hr Metoprolol Succinate (Toprol Xl) 100 mg PO DAILY [facility] Last Admin: 01/30/17 10:18 Dose: 100 mg Non-Formulary Medication (Brimonidine Tartrate/Timolol [Combigan Eye Drops]) 5 ml OP BID [facility] Last Admin: 01/30/17 18:18 Dose: Not Given Oxycodone/Acetaminophen (Percocet 5/325 Mg Tab) 1 tab PO Q4H PRN PRN Reason: Pain, moderate (4-7) Stop: 02/02/17 18:07 Last Admin: 01/30/17 18:19 Dose: 1 tab Polyethylene Glycol (Miralax) 17 gm PO BID [facility] Last Admin: 01/30/17 18:19 Dose: 17 gm Warfarin Sodium (Coumadin) 3 mg PO 1800 [facility] PRN Reason: Protocol Last Admin: 01/30/17 18:18 Dose: 3 mg - Labs Labs: 01/31/17 06:45 01/31/17 06:45 PT 13.3 Seconds (9.9-11.8) H 01/31/17 06:45 INR 1.23 (0.93-1.08) H 01/31/17 06:45 APTT 39.5 Seconds (23.7-30.8) H 01/26/17 10:30 - Constitutional Appears: Non-toxic, No Acute Distress - Head Exam Head Exam: NORMAL INSPECTION - Respiratory Exam Respiratory Exam: Decreased Breath Sounds - Cardiovascular Exam Cardiovascular Exam: +S1, +S2 - GI/Abdominal Exam GI & Abdominal Exam: Soft. absent: Tenderness Assessment and Plan - Assessment and Plan (Free Text) Plan: Assessment R/O urinary tract infection with perinephric stranding noted on CT scan of the abdomen and pelvis left knee swelling, probably due to osteoarthritis atrial fibrillation CAD spinal stenosis HTN obesity with BMI 36 Plan on Zosyn (day 5); reviewed CT leg - patient to get steroid intra-articular injection into the knee by Ortho urine cx showed contamination - as discussed with Dr. Matthews, patient can be switched to PO Vantin for another 7 days with outpatient follow up with her PMD
--- NOTE | 2017-01-31 23:05 | DS ---
DISCHARGE DIAGNOSES: 1. Left knee pain. 2. Atrial fibrillation. 3. Hypertension. 4. Leukocytosis. 5. Anemia. 6. Rule out urinary tract infection, urine culture contamination. HOSPITAL COURSE: The patient was admitted with left knee pain. She was treated with IV antibiotics. There was concern of septic arthritis. Fever resolved during hospitalization. Orthopedic consultation start with Dr. Fortune and she was given steroid injection in the left knee. Urine culture was contaminant. Atrial fibrillation, heart rate controlled with current medications and blood pressure was controlled. She is being discharged in stable condition. PHYSICAL EXAMINATION ON DISCHARGE: VITAL SIGNS: Temperature 98.7, heart rate 80 per minute, respiratory rate 16 per minute, oxygen saturation 98% on room air. HEENT: Normal. CHEST: Air entry present and equal bilaterally. No added sounds. CARDIOVASCULAR: S1 and S2 normal. No murmur and no gallop. ABDOMEN: Soft and nontender. No hepatosplenomegaly. EXTREMITIES: No edema. Left knee, mild swelling present, nontender. DISPOSITION: Discharge home. DIET: Regular. CONDITION: Stable. FOLLOWUP: Followup with Dr. Giordano in one week. DISCHARGE MEDICATIONS: Continue all home medications. Time spent in preparing discharge and coordinating care 50 minutes. Sofia Matthews MD
== END 2017-01-31 17:58 | disposition home health service (06) | DRG 872 ==
LOC: ED 10:02 → ERH 14:06 → 5RNO 15:40
PROVIDERS: ADMIT Internal Medicine Nephrology; ATTEND Internal Medicine Nephrology
PROC: 3E0U33Z Introduction of Anti-inflammatory into Joints, Percutaneous Approach (ICD-10-PCS; principal; 2017-01-31)
PROC: 3E0U3BZ Introduction of Anesthetic Agent into Joints, Percutaneous Approach (ICD-10-PCS; 2017-01-31)
DX: A41.9 Sepsis, unspecified organism (principal); G62.9 Polyneuropathy, unspecified; I48.91 Unspecified atrial fibrillation; I80.9 Phlebitis and thrombophlebitis of unspecified site; K76.0 Fatty (change of) liver, not elsewhere classified; N12 Tubulo-interstitial nephritis, not specified as acute or chronic; I10 Essential (primary) hypertension; E66.9 Obesity, unspecified; D64.9 Anemia, unspecified; I25.10 Atherosclerotic heart disease of native coronary artery without angina pectoris; Z68.36 Body mass index [BMI] 36.0-36.9, adult; K57.90 Diverticulosis of intestine, part unspecified, without perforation or abscess without bleeding; M17.12 Unilateral primary osteoarthritis, left knee; M48.00 Spinal stenosis, site unspecified; Z79.01 Long term (current) use of anticoagulants; Z79.899 Other long term (current) drug therapy; Z88.5 Allergy status to narcotic agent; Z88.6 Allergy status to analgesic agent; R40.2412 Glasgow coma scale score 13-15, at arrival to emergency department; Z87.81 Personal history of (healed) traumatic fracture; I83.90 Asymptomatic varicose veins of unspecified lower extremity

== ENCOUNTER 2017-11-23 11:45 | Emergency (ER) | payer MEDICARE ==
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
[2017-11-23 14:15] LABS: INR 2.99 (0.93-1.08); PROTHROMBIN TIME 34.8 SECONDS (9.4-12.5)
[2017-11-23 14:41] VITALS: BP 150/82; PULSE 84; RESP 18; TEMP 97.9; O2SAT 95
--- NOTE | 2017-11-23 14:48 | RAD ---
PROCEDURE: Radiographs of the pelvis and right hip dated 11/23/2017. HISTORY: Right leg pain, no trauma COMPARISON: Comparison made with concurrent radiographs of the right femur and prior radiographs of pelvis and both hips 01/26/2017 FINDINGS: BONES: No evidence of acute displaced fracture nor dislocation. Osseous structures intact. Both femoral heads appropriately located within the respective acetabula. JOINTS: Minor degenerative spurring superolateral aspect right acetabular roof OTHER FINDINGS: Mild degenerative spondylosis lower lumbosacral spine IMPRESSION: No evidence of acute displaced fracture nor dislocation. Minor spurring seen along the superolateral margin right acetabular
--- NOTE | 2017-11-23 14:50 | RAD ---
PROCEDURE: Right femur 11/23/2017 HISTORY: right leg pain COMPARISON: Comparison made with concurrent radiographs pelvis and right hip TECHNIQUE: AP and lateral views of the right femur performed FINDINGS: No evidence of acute displaced fracture nor dislocation. The osseous structures appear intact. Soft tissues unremarkable. No subcutaneous air or radiopaque foreign bodies IMPRESSION: No acute fractures.
--- NOTE | 2017-11-23 18:26 | US ---
PROCEDURE: Right lower extremity venous US HISTORY: Leg pain and swelling. Evaluate for DVT. PHYSICIAN(S): Roni Rosales M.D. TECHNIQUE: Duplex sonography and color-flow Doppler with graded compression were used to evaluate the deep venous system of the right lower extremity. FINDINGS: The visualized deep venous system of the right lower extremity is sonographically normal and compressible. Normal waveforms and augmentation are seen. There is no sonographic evidence for deep venous thrombosis in the visualized segments of the right lower extremity. IMPRESSION: 1. No sonographic evidence for deep venous thrombosis in the visualized segments of the right lower extremity.
== END 2017-11-23 14:30 | disposition home or self-care (01) ==
LOC: ED 11:45
DX: M79.2 Neuralgia and neuritis, unspecified (principal); M79.604 Pain in right leg; I10 Essential (primary) hypertension
CPT/HCPCS: 73502; 73552; 85610; 93971; 96372; 99283; J1885

== ENCOUNTER 2018-01-20 13:34 | Emergency (ER) | payer MEDICARE ==
[2018-01-20 13:42] VITALS: BMI 35.2
[2018-01-20 13:47] VITALS: RESP 18
[2018-01-20] MEDS ORDERED: MethylPREDNISolone Depo 80 mg/ml (5 ml) Inj IM ONE (13:51)
[2018-01-20] MEDS ORDERED: Oxycodone/Acetaminophen 5/325 mg Tab PO STA (13:51)
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
--- NOTE | 2018-01-20 14:29 | RAD ---
PROCEDURE: Right Hip Radiographs. HISTORY: right hip pain COMPARISON: None. FINDINGS: BONES: Bone alignment and mineralization are normal. There is no acute displaced fracture or bone destruction. JOINTS: Normal. SOFT TISSUES: Normal. OTHER FINDINGS: None. IMPRESSION: No acute fracture or dislocation. Please note occult fractures cannot be excluded on plain radiographs. If there is a persistent clinical concern, an MRI of the hip may be performed for further evaluation.
--- NOTE | 2018-01-20 14:36 | CT ---
Date of service: 01/20/2018 PROCEDURE: CT Lumbar Spine without contrast HISTORY: Right Sided Radiculopathy COMPARISON: None available. TECHNIQUE: Axial computed tomography images were obtained of the lumbar spine without the use of intravenous contrast. Coronal and sagittal reformatted images were created and reviewed. Radiation dose: Total exam DLP = 1537. MGy-cm. This CT exam was performed using one or more of the following dose reduction techniques: Automated exposure control, adjustment of the mA and/or kV according to patient size, and/or use of iterative reconstruction technique. FINDINGS: VERTEBRAE: There is normal alignment of the lumbar vertebral bodies. There is normal lumbar lordosis. There is no acute fracture, spondylolysis or spondylolisthesis. There is diffuse bone demineralization. DISC SPACES: There is desiccation of the L2-3 disc with vacuum. The remaining disc heights are maintained. DISCS/SPINAL CANAL/NEURAL FORAMINA: Evaluation of the spinal canal, conus medullaris and nerve roots of cauda equina is limited on noncontrast CT examination. L1-2: No large disc herniation, neural foraminal or spinal canal stenosis. L2-3: Diffuse posterior disc bulge without central spinal canal stenosis. Mild bilateral facet arthropathy contribute to moderate right and mild left neural foraminal narrowing. . L3-4: Diffuse posterior disc bulge in conjunction with moderate ligamentum flavum infolding result in moderate to severe spinal canal stenosis. Moderate bilateral facet arthropathy contribute to severe right and moderate left neural foraminal narrowing. . L4-5: Diffuse posterior disc bulge in conjunction with moderate ligamentum flavum infolding result in moderate to severe spinal canal stenosis. Moderate bilateral facet arthropathy contribute to moderate neural foraminal narrowing. L5-S1: Diffuse posterior disc bulge in conjunction with mild ligamentum flavum infolding result in mild spinal canal stenosis. No neural foraminal narrowing. PARASPINAL SOFT TISSUES: The paraspinous soft tissues are normal. OTHER FINDINGS: Imaged portion of the retroperitoneum is within normal limits. Sigmoid diverticulosis without CT evidence for acute diverticulitis. IMPRESSION: No acute fracture or spondylolysis. Multilevel degenerative disc disease, worse at L3-4 with moderate to severe spinal canal stenosis, severe right and moderate left neural foraminal narrowing.
[2018-01-20 15:24] VITALS: BP 137/91; PULSE 80; TEMP 98.3; O2SAT 96
== END 2018-01-20 15:15 | disposition home or self-care (01) ==
LOC: ED 13:34
DX: G89.29 Other chronic pain (principal); M54.31 Sciatica, right side; I48.91 Unspecified atrial fibrillation; I10 Essential (primary) hypertension
CPT/HCPCS: 72131; 73502; 96372; 99282; J1040

== ENCOUNTER 2018-02-04 15:45 | Observation (INO) | payer MEDICARE, OTHER ==
[2018-02-04 15:46] VITALS: BMI 35.2
[2018-02-04] MEDS ORDERED: Metoprolol 1 mg/ml Inj IVP STA (16:35)
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
[2018-02-04 17:19] LABS: BASO # 0.03 K/mm3 (0.0-2.0); BASO % 0.2 % (0.0-3.0); EOS # 0.2 (0.0-0.7); EOS % 1.3 % (1.5-5.0); GRAN # 8.47 (1.4-6.5); GRAN % 70.1 % (50.0-68.0); HEMOGLOBIN 13.8 g/dL (12.0-16.0); LYMPH # 2.5 (1.2-3.4); LYMPH % 20.4 % (22.0-35.0); MEAN CELL VOLUME 93.5 fl (80.0-105.0); MEAN CORPUSCULAR HEMOGLOBIN 31.9 pg (25.0-35.0); MEAN CORPUSCULAR HGB CONC 34.2 g/dl (31.0-37.0); MEAN PLATELET VOLUME 11.2 fl (7.0-11.0); RBC 4.32 10^6/uL (3.5-6.1); RED CELL DISTRIBUTION WIDTH 14.3 % (11.5-14.5); WHITE BLOOD COUNT 12.1 10^3/ul (4.5-11.0)
[2018-02-04 17:24] LABS: INR 1.81; PARTIAL THROMBOPLASTIN TIME 31.7 Seconds (25.1-36.5); PROTHROMBIN TIME 20.9 SECONDS (9.4-12.5)
[2018-02-04 17:25] LABS: ALB/GLOB RATIO 1.3 (1.1-1.8); ALBUMIN 4.4 g/dL (3.0-4.8); ALT/SGPT 19 U/L (7-56); AST/SGOT 24 U/L (14-36); BLOOD UREA NITROGEN 10 mg/dL (7-21); CALCIUM 9.8 mg/dL (8.4-10.5); GFR NON-AFRICAN AMERICAN > 60
--- NOTE | 2018-02-04 17:26 | CT ---
Date of service: 02/04/2018 PROCEDURE: CT HEAD WITHOUT CONTRAST. HISTORY: headache COMPARISON: Noncontrast head CT performed 01/19/16 TECHNIQUE: Axial computed tomography images were obtained through the head/brain without intravenous contrast. Radiation dose: Total exam DLP = 833.09 mGy-cm. This CT exam was performed using one or more of the following dose reduction techniques: Automated exposure control, adjustment of the mA and/or kV according to patient size, and/or use of iterative reconstruction technique. FINDINGS: HEMORRHAGE: No intracranial hemorrhage. BRAIN: Diffuse atrophy with prominence of the ventricles and sulci noted. No mass effect or edema. Intracranial atherosclerosis. Scattered periventricular and subcortical white matter hypodensities, which are nonspecific, but often seen with chronic microvascular ischemic disease. Please note that MRI with diffusion imaging is more sensitive in the detection of acute ischemic event. VENTRICLES: No hydrocephalus. CALVARIUM: Unremarkable. PARANASAL SINUSES: Unremarkable as visualized. No significant inflammatory changes. MASTOID AIR CELLS: Unremarkable as visualized. No inflammatory changes. OTHER FINDINGS: None. IMPRESSION: Generalized atrophy. Nonspecific white matter changes.
[2018-02-04 17:35] LABS: D DIMER < 200 ng/mlDDU (0-243)
[2018-02-04 17:37] LABS: B-TYPE NATRIURETIC PEPTIDE 1020 pg/mL (0-450); TROPONIN I < 0.01 ng/mL
--- NOTE | 2018-02-04 18:29 | CARD ---
APPROVED REPORT Date of service: 02/04/2018 EKG Measurement Heart [id number] <Conclusion> Poor data quality, interpretation may be adversely affected Atrial fibrillation with rapid ventricular response Low voltage QRS Nonspecific ST and T wave abnormality, probably digitalis effect Abnormal ECG
[2018-02-04] MEDS ORDERED: Oxycodone/Acetaminophen 5/325 mg Tab PO PRN (20:22)
[2018-02-04] MEDS ORDERED: WARFARIN SODIUM 5 MG PO SCH (22:00)
[2018-02-04 23:38] VITALS: O2SAT 96
[2018-02-05 05:36] VITALS: RESP 20
--- NOTE | 2018-02-05 08:27 | RAD ---
Date of service: 02/04/2018 HISTORY: sob COMPARISON: 02/23/2016 FINDINGS: LUNGS: No active pulmonary disease. PLEURA: No significant pleural effusion identified, no pneumothorax apparent. CARDIOVASCULAR: Normal. OSSEOUS STRUCTURES: No significant abnormalities. VISUALIZED UPPER ABDOMEN: Normal. OTHER FINDINGS: None. IMPRESSION: No active disease.
[2018-02-05] MEDS ORDERED: diltiaZEM 240 mg/24 Hours CD Cap PO SCH (10:00)
[2018-02-05] MEDS ORDERED: Metoprolol Succinate 100 mg XL Tab PO SCH (10:00)
[2018-02-05 12:02] VITALS: BP 132/71; PULSE 80; TEMP 97.9
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
--- NOTE | 2018-02-06 09:07 | HP ---
CHIEF COMPLAINT AND HISTORY OF PRESENT ILLNESS: This is an 82-year-old female who came to the hospital because of chest pain, the patient was having pressure, she was found to have atrial fibrillation with rapid rate. She also is complaining of intermittent nausea. The patient was given medications in the ER and had improvement of her symptoms. She also state that she had episode of dizziness. She currently feels well. She has no complaints of any chest pain or shortness of breath. No nausea. No vomiting. No dysuria or frequency. No nocturia. ALLERGIES: ACETAMINOPHEN AND CODEINE. MEDICATONS: Home medications have been reviewed on the JUL. SOCIAL HISTORY: She does not smoke, drink or use drugs. PAST MEDICAL HISTORY: Atrial fibrillation, hypertension, osteoarthritis. FAMILY HISTORY: Noncontributory. PHYSICAL EXAMINATION: VITAL SIGNS: Temperature is 97.9, pulse of 80, blood pressure 132/71, respirations 20. GENERAL: The patient lying in bed, uncomfortable, and in no acute distress. HEENT: Atraumatic and normocephalic. Anicteric sclerae. Moist mucosa. [place] conjunctivae. No oral lesions. NECK: No JVD, anterior and posterior adenopathy, thyromegaly, or bruits. CARDIOVASCULAR: Irregular. No murmur, rubs or gallop. LUNGS: Clear to auscultation bilaterally. No wheezes, rales, or rhonchi. ABDOMEN: Bowel sounds are positive. Soft, nontender and nondistended. No hepatosplenomegaly. No rebound and no guarding EXTREMITIES: No cyanosis, clubbing, or edema. NEUROLOGIC: No facial asymmetry. Tongue is midline. No uvula deviation. Power is 5/5 upper extremity and lower extremity. Sensation intact in upper extremity and lower extremity. PSYCHIATRIC: She is awake, alert and oriented x3. No anxiety or depression. She has normal affect. GENITOURINARY: No CVA tenderness. VASCULAR: 2+ pulses in the carotid pulses and pedal pulses. SKIN: No erythema or nodules SPINE: Shows normal curvature. LABORATORY DATA: Labs have been reviewed. White count 12.1. She has a troponin of 0.01 x2. DIAGNOSTIC DATA: EKG showed atrial fibrillation with rapid rate, heart rate 106. Chest x-ray done shows no active disease. ASSESSMENT: 1. Atrial fibrillation with rapid rate, improved. 2. Fatty liver. 3. Neuropathy. 4. Diverticulosis. PLAN: The patient is going to continue her Coumadin. She was given Lasix in the ER. She was also given metoprolol in the ER. Her heart rate is controlled in the 80s. She was seen by Dr. Sutton. I did speak to him, the patient has been okay for discharge. Her Cardizem has been adjusted. She will be followed up as an outpatient. Discharge home. CONDITION: Stable. ACTIVITIES: Increase as tolerated. Jose Giordano MD
== END 2018-02-05 14:18 | disposition home or self-care (01) ==
LOC: ED 15:45 → ERH 18:23 → 2RNO 02-05 00:21
PROVIDERS: ADMIT Internal Medicine Nephrology; ATTEND Internal Medicine Nephrology
DX: I48.2 Chronic atrial fibrillation (principal); I50.9 Heart failure, unspecified; I11.0 Hypertensive heart disease with heart failure; G62.9 Polyneuropathy, unspecified; Z79.01 Long term (current) use of anticoagulants; K76.0 Fatty (change of) liver, not elsewhere classified; K57.90 Diverticulosis of intestine, part unspecified, without perforation or abscess without bleeding
CPT/HCPCS: 36415; 70450; 71045; 80053; 83735; 83880; 84484; 85025; 85378; 85610; 85730; 93005; 96374; 96375; 99285; G0378; J1940; J2765

== ENCOUNTER 2018-08-26 14:56 | Observation (INO) | payer MEDICARE ==
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
[2018-08-26 16:30] LABS: BASO # 0.03 K/mm3 (0.0-2.0); BASO % 0.2 % (0.0-3.0); EOS # 0.1 (0.0-0.7); EOS % 1.1 % (1.5-5.0); LYMPH # 2.2 (1.2-3.4); LYMPH % 17.8 % (22.0-35.0); MEAN CELL VOLUME 95.4 fl (80.0-105.0); MEAN CORPUSCULAR HEMOGLOBIN 31.8 pg (25.0-35.0); MEAN CORPUSCULAR HGB CONC 33.3 g/dl (31.0-37.0); MEAN PLATELET VOLUME 10.4 fl (7.0-11.0); MONO # 0.9 (0.1-0.6); MONO % 7.1 % (1.0-6.0); RBC 4.09 10^6/uL (3.5-6.1); RED CELL DISTRIBUTION WIDTH 14.5 % (11.5-14.5); WHITE BLOOD COUNT 12.5 10^3/uL (4.5-11.0)
[2018-08-26 16:38] LABS: INR 2.57; PARTIAL THROMBOPLASTIN TIME 62.9 Seconds (26.9-38.3); PROTHROMBIN TIME 28.5 SECONDS (9.4-12.5)
[2018-08-26 16:45] LABS: ALB/GLOB RATIO 1.1 (1.1-1.8); ALBUMIN 3.8 g/dL (3.0-4.8); ALT/SGPT 21 U/L (7-56); AST/SGOT 25 U/L (14-36); BLOOD UREA NITROGEN 12 mg/dL (7-21); GFR NON-AFRICAN AMERICAN > 60
--- NOTE | 2018-08-26 16:51 | RAD ---
Date of service: 08/26/2018 HISTORY: chest pain COMPARISON: No prior. TECHNIQUE: 1 view obtained. FINDINGS: LUNGS: No active pulmonary disease. PLEURA: No significant pleural effusion identified, no pneumothorax apparent. CARDIOVASCULAR: No aortic atherosclerotic calcification present. Normal cardiac size. No pulmonary vascular congestion. OSSEOUS STRUCTURES: No significant abnormalities. VISUALIZED UPPER ABDOMEN: Normal. OTHER FINDINGS: None. IMPRESSION: No active disease.
[2018-08-26 16:54] LABS: TROPONIN I < 0.01 ng/mL
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
--- NOTE | 2018-08-26 17:57 | CARD ---
APPROVED REPORT Date of service: 08/26/2018 EKG Measurement Heart [id number] <Conclusion> Atrial fibrillation Low voltage QRS Poor R wave progression V1-3. NDSTT abnormalities CCR Abnormal ECG
[2018-08-26] MEDS: Metoprolol Succinate 100 mg XL Tab PO SCH (22:10)
[2018-08-26] MEDS: diltiaZEM 240 mg/24 Hours CD Cap PO SCH (22:11)
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
--- NOTE | 2018-08-27 10:59 | US ---
PROCEDURE: Bilateral carotid artery duplex ultrasound HISTORY: Carotid stenosis syncope PHYSICIAN(S): Roni Rosales MD. TECHNIQUE: Duplex sonography and color-flow Doppler were used to evaluate the carotid bifurcations and limited segments of the vertebral arteries bilaterally. FINDINGS: There is mild smooth echogenic plaque noted at the carotid bifurcations bilaterally. The peak systolic velocity in the proximal right internal carotid artery is 91 cm/sec. This corresponds to a 20 to 39% proximal right ICA stenosis. Normal systolic velocities are noted in the proximal right external carotid artery. There is antegrade flow in the right vertebral artery. The peak systolic velocity in the proximal left internal carotid artery is 79 cm/sec. This corresponds to a 20 to 39% proximal left ICA stenosis. Normal systolic velocities are noted in the proximal left external carotid artery. There is antegrade flow in the left vertebral artery. IMPRESSION: 1. Bilateral 20-39% proximal ICA stenoses. 2. Antegrade flow in both vertebral arteries.
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
[2018-08-27] MEDS: Metoprolol Succinate 100 mg XL Tab PO SCH (11:35)
[2018-08-27] MEDS: diltiaZEM 240 mg/24 Hours CD Cap PO SCH (11:36)
--- NOTE | 2018-08-27 12:08 | CARD ---
APPROVED REPORT Date of service: 08/27/2018 EXAM: Two-dimensional and M-mode echocardiogram with Doppler and color Doppler. INDICATION Syncope 2D DIMENSIONS Left Atrium (2D)3.9 (1.6-4.0cm)IVSd1.1 (0.7-1.1cm) LVDd3.7 (3.9-5.9cm)PWd1.1 (0.7-1.1cm) LVDs2.5 (2.5-4.0cm)FS (%) 33.8 % LVEF (%)63.5 (>50%) M-Mode DIMENSIONS Aortic Root2.20 (2.2-3.7cm)Aortic Cusp Exc.1.40 (1.5-2.0cm) Aortic Valve AoV Peak Xnehiaum446.0cm/Liyah Peak GR.7mmHg Mitral Valve E/A ratio0.0 TDI E/Lateral E'0.0E/Medial E'0.0 Tricuspid Valve TR Peak [id number]/sRAP [id number] Peak Gr.41mmHg [id number] LEFT VENTRICLE The left ventricle is normal size. There is borderline concentric left ventricular hypertrophy. The left ventricular function is normal. The left ventricular ejection fraction is within the normal range. There is normal LV segmental wall motion. RIGHT VENTRICLE The right ventricle is normal size. The right ventricular systolic function is normal. ATRIA The left atrium size is normal. The right atrium is mildly dilated. The interatrial septum is intact with no evidence for an atrial septal defect. AORTIC VALVE The aortic valve is normal in structure. No aortic regurgitation is present. There is no aortic valvular stenosis. MITRAL VALVE The mitral valve is normal in structure. There is no mitral valve regurgitation noted. TRICUSPID VALVE The tricuspid valve is normal in structure. There is moderate tricuspid regurgitation. PULMONIC VALVE The pulmonary valve is normal in structure. GREAT VESSELS The aortic root is normal in size. The IVC is normal in size and collapses >50% with inspiration. PERICARDIAL EFFUSION There is no pleural effusion. There is no pericardial effusion. <Conclusion> Dilated RA. Normal LV size and systolic function. Borderline concentric LVH. Moderate TR. Moderate pulmonary HTN.
--- NOTE | 2018-08-27 14:40 | CON ---
DATE: 08/27/2018 HISTORY OF PRESENT ILLNESS: This is 83-year-old white female with past medical history of AFib and the patient had a syncopal episode. She was in the kitchen, does not recall how she fell on the floor and denies any chest pain or palpitation. CAT scan of the head was done which was reported negative except basal ganglia lacunar infarct, old. PAST MEDICAL HISTORY: Had atrial fibrillation and status post left breast lumpectomy and also chronic dizziness and intermittent anxiety. ALLERGIES: ALLERGIC TO CODEINE. SOCIAL HISTORY: Does not smoke. Does not drink. REVIEW OF SYSTEMS: A 10-point review of system was negative. PHYSICAL EXAMINATION: HEENT: Normocephalic and atraumatic. NECK: Supple. NEUROLOGIC: Awake, alert and oriented to x3. No aphasia. Cranial nerve II through XII were tested. Pupil equal reactive. EOM intact. Visual field full. No facial asymmetry. Tongue midline. Motor examination, moves all the extremities equally. Tone normal. Deep tendon reflexes 1+. Plantars are downgoing. Sensory appears intact. Cerebellar gait deferred. IMPRESSION AND PLAN: Syncope often clear etiology, with a history of atrial fibrillation with controlled rate and CAT scan of the head was negative. Continue present management. We will followup. Also carotid Doppler was done which shows only 20%-39% proximal internal carotid artery stenosis. Workup in progress. Continue present management. We will followup. Marcel Hall MD
[2018-08-28 00:14] VITALS: RESP 20
[2018-08-28 05:52] VITALS: TEMP 98; O2SAT 94
[2018-08-28 07:39] LABS: BASO # 0.05 K/mm3 (0.0-2.0); BASO % 0.4 % (0.0-3.0); EOS # 0.5 (0.0-0.7); EOS % 3.7 % (1.5-5.0); HEMOGLOBIN 13.6 g/dL (12.0-16.0); LYMPH # 4.8 (1.2-3.4); LYMPH % 36.9 % (22.0-35.0); MEAN CELL VOLUME 96.1 fl (80.0-105.0); MEAN CORPUSCULAR HEMOGLOBIN 31.2 pg (25.0-35.0); MEAN CORPUSCULAR HGB CONC 32.5 g/dl (31.0-37.0); MEAN PLATELET VOLUME 10.7 fl (7.0-11.0); MONO # 0.9 (0.1-0.6); MONO % 7.1 % (1.0-6.0); RBC 4.36 10^6/uL (3.5-6.1); RED CELL DISTRIBUTION WIDTH 14.7 % (11.5-14.5); WHITE BLOOD COUNT 13.1 10^3/uL (4.5-11.0)
[2018-08-28 07:44] LABS: INR 2.79; PROTHROMBIN TIME 31.5 SECONDS (9.4-12.5)
--- NOTE | 2018-08-28 07:50 | CP.PCM.DIS ---
<Dean Bonner - Last Filed: 08/28/18 13:01> Provider - Provider Date of Admission: 08/26/18 18:27 Attending physician: Jose Giordano MD Consults: 08/26/18 18:25 Consult [Physician Consult] Stat Comment: Consulting Provider: Leonard Sutton Consulting Physician: Leonard Sutton Reason for Consult: syncope Consult [Physician Consult] Stat Comment: Consulting Provider: Félxi Hall Consulting Physician: Félix Hall Reason for Consult: syncope Time Spent in preparation of Discharge (in minutes): 45 Diagnosis - Discharge Diagnosis (1) Atrial fibrillation Status: Chronic (2) Syncope Status: Resolved (3) Osteoarthritis Status: Chronic Hospital Course - Lab Results Lab Results: Most Recent Lab Values WBC 13.1 10^3/uL (4.5-11.0) H 08/28/18 07:00 RBC 4.36 10^6/uL (3.5-6.1) 08/28/18 07:00 Hgb 13.6 g/dL (12.0-16.0) 08/28/18 07:00 Hct 41.9 % (36.0-48.0) 08/28/18 07:00 MCV 96.1 fl (80.0-105.0) 08/28/18 07:00 MCH 31.2 pg (25.0-35.0) 08/28/18 07:00 MCHC 32.5 g/dl (31.0-37.0) 08/28/18 07:00 RDW 14.7 % (11.5-14.5) H 08/28/18 07:00 Plt Count 327 10^3/uL (120.0-450.0) 08/28/18 07:00 MPV 10.7 fl (7.0-11.0) 08/28/18 07:00 Neut % (Auto) 51.9 % (50.0-68.0) 08/28/18 07:00 Lymph % (Auto) 36.9 % (22.0-35.0) H 08/28/18 07:00 [place] % (Auto) 7.1 % (1.0-6.0) H 08/28/18 07:00 Eos % (Auto) 3.7 % (1.5-5.0) 08/28/18 07:00 Baso % (Auto) 0.4 % (0.0-3.0) 08/28/18 07:00 Lymph # (Auto) 4.8 (1.2-3.4) H 08/28/18 07:00 [place] # (Auto) 0.9 (0.1-0.6) H 08/28/18 07:00 Eos # (Auto) 0.5 (0.0-0.7) 08/28/18 07:00 Baso # (Auto) 0.05 K/mm3 (0.0-2.0) 08/28/18 07:00 Absolute Neuts (auto) 6.80 (1.4-6.5) H 08/28/18 07:00 PT 28.5 SECONDS (9.4-12.5) H 08/26/18 16:15 INR 2.57 08/26/18 16:15 APTT 62.9 Seconds (26.9-38.3) H 08/26/18 16:15 Sodium 142 mmol/L (132-148) 08/26/18 16:15 Potassium 4.5 mmol/L (3.6-5.0) 08/26/18 16:15 Chloride 106 mmol/L (98-107) 08/26/18 16:15 Carbon Dioxide 27 mmol/L (21-33) 08/26/18 16:15 Anion Gap 13 (10-20) 08/26/18 16:15 BUN 12 mg/dL (7-21) 08/26/18 16:15 Creatinine 0.6 mg/dl (0.7-1.2) L 08/26/18 16:15 Est GFR ( Amer) > 60 08/26/18 16:15 Est GFR (Non-Af Amer) > 60 08/26/18 16:15 POC Glucose (mg/dL) 131 mg/dL (65-110) H 08/26/18 15:14 Random Glucose 108 mg/dL (70-110) 08/26/18 16:15 Calcium 10.0 mg/dL (8.4-10.5) 08/26/18 16:15 Magnesium 1.8 mg/dL (1.7-2.2) 08/26/18 16:15 Total Bilirubin 0.3 mg/dL (0.2-1.3) 08/26/18 16:15 AST 25 U/L (14-36) 08/26/18 16:15 ALT 21 U/L (7-56) 08/26/18 16:15 Alkaline Phosphatase 65 U/L (38-126) 08/26/18 16:15 Troponin I < 0.01 ng/mL 08/26/18 16:15 Total Protein 7.5 g/dL (5.8-8.3) 08/26/18 16:15 Albumin 3.8 g/dL (3.0-4.8) 08/26/18 16:15 Globulin 3.6 gm/dL 08/26/18 16:15 Albumin/Globulin Ratio 1.1 (1.1-1.8) 08/26/18 16:15 - Hospital Course Hospital Course: 83 year old female with past medical history of A-fib, HTN, and OA presents to the hospital after syncopal episode at home. Patient states she got up to get the phone and after she was finished, she passed out. Patient did not hit her head. Patient had therapeutic INR. Patient was evaluated by cardiology and neurology. Patient had Echocardiogram performed which demonstrated normal EF and no acute pathology. Patient also had carotid dopplers performed which showed b/l ICA stenoses of 20-39%. Patient will follow up with Dr. Sutton on discharge. Mary li will also follow up with Dr. Garcia. Patient will continue all home medications. Discharge Exam - Head Exam Head Exam: ATRAUMATIC, NORMAL INSPECTION, NORMOCEPHALIC - Eye Exam Eye Exam: EOMI, Normal appearance. absent: Conjunctival injection - ENT Exam ENT Exam: Mucous Membranes Moist, Normal Exam - Respiratory Exam Respiratory Exam: NORMAL BREATHING PATTERN, UNREMARKABLE. absent: Accessory Muscle Use, Decreased Breath Sounds - Cardiovascular Exam Cardiovascular Exam: Irregular Rhythm, +S1, +S2. absent: Systolic Murmur - GI/Abdominal Exam GI & Abdominal Exam: Normal Bowel Sounds, Soft. absent: Distended, Guarding, Tenderness - Extremities Exam Extremities exam: normal inspection - Neurological Exam Neurological exam: Alert, CN II-XII Intact, Oriented x3 - Psychiatric Exam Psychiatric exam: Normal Affect, Normal Mood - Skin Skin Exam: Dry, Intact, Normal Color, Warm Discharge Plan - Follow Up Plan Condition: STABLE Disposition: HOME/ ROUTINE Instructions: Syncope (Fainting), Heart Healthy Diet, Vitamin K Diet, Warfarin Additional Instructions: - Follow up with your Primary Doctor within 1 week. Have your INR blood level test done in your MD's office. - Continue home medications. Continue with Coumadin 4mg. <Jose Giordano - Last Filed: 08/28/18 14:14> Provider - Provider Date of Admission: 08/26/18 18:27 Attending physician: Jose Giordano MD Consults: 08/26/18 18:25 Consult [Physician Consult] Stat Comment: Consulting Provider: Leonard Sutton Consulting Physician: Leonard Sutton Reason for Consult: syncope Consult [Physician Consult] Stat Comment: Consulting Provider: Félix Hall Consulting Physician: Félix Hall Reason for Consult: syncope Hospital Course - Lab Results Lab Results: Most Recent Lab Values WBC 13.1 10^3/uL (4.5-11.0) H 08/28/18 07:00 RBC 4.36 10^6/uL (3.5-6.1) 08/28/18 07:00 Hgb 13.6 g/dL (12.0-16.0) 08/28/18 07:00 Hct 41.9 % (36.0-48.0) 08/28/18 07:00 MCV 96.1 fl (80.0-105.0) 08/28/18 07:00 MCH 31.2 pg (25.0-35.0) 08/28/18 07:00 MCHC 32.5 g/dl (31.0-37.0) 08/28/18 07:00 RDW 14.7 % (11.5-14.5) H 08/28/18 07:00 Plt Count 327 10^3/uL (120.0-450.0) 08/28/18 07:00 MPV 10.7 fl (7.0-11.0) 08/28/18 07:00 Neut % (Auto) 51.9 % (50.0-68.0) 08/28/18 07:00 Lymph % (Auto) 36.9 % (22.0-35.0) H 08/28/18 07:00 [place] % (Auto) 7.1 % (1.0-6.0) H 08/28/18 07:00 Eos % (Auto) 3.7 % (1.5-5.0) 08/28/18 07:00 Baso % (Auto) 0.4 % (0.0-3.0) 08/28/18 07:00 Lymph # (Auto) 4.8 (1.2-3.4) H 08/28/18 07:00 [place] # (Auto) 0.9 (0.1-0.6) H 08/28/18 07:00 Eos # (Auto) 0.5 (0.0-0.7) 08/28/18 07:00 Baso # (Auto) 0.05 K/mm3 (0.0-2.0) 08/28/18 07:00 Absolute Neuts (auto) 6.80 (1.4-6.5) H 08/28/18 07:00 PT 31.5 SECONDS (9.4-12.5) H 08/28/18 07:00 INR 2.79 08/28/18 07:00 APTT 62.9 Seconds (26.9-38.3) H 08/26/18 16:15 Sodium 142 mmol/L (132-148) 08/26/18 16:15 Potassium 4.5 mmol/L (3.6-5.0) 08/26/18 16:15 Chloride 106 mmol/L (98-107) 08/26/18 16:15 Carbon Dioxide 27 mmol/L (21-33) 08/26/18 16:15 Anion Gap 13 (10-20) 08/26/18 16:15 BUN 12 mg/dL (7-21) 08/26/18 16:15 Creatinine 0.6 mg/dl (0.7-1.2) L 08/26/18 16:15 Est GFR ( Amer) > 60 08/26/18 16:15 Est GFR (Non-Af Amer) > 60 08/26/18 16:15 POC Glucose (mg/dL) 131 mg/dL (65-110) H 08/26/18 15:14 Random Glucose 108 mg/dL (70-110) 08/26/18 16:15 Calcium 10.0 mg/dL (8.4-10.5) 08/26/18 16:15 Magnesium 1.8 mg/dL (1.7-2.2) 08/26/18 16:15 Total Bilirubin 0.3 mg/dL (0.2-1.3) 08/26/18 16:15 AST 25 U/L (14-36) 08/26/18 16:15 ALT 21 U/L (7-56) 08/26/18 16:15 Alkaline Phosphatase 65 U/L (38-126) 08/26/18 16:15 Troponin I < 0.01 ng/mL 08/26/18 16:15 Total Protein 7.5 g/dL (5.8-8.3) 08/26/18 16:15 Albumin 3.8 g/dL (3.0-4.8) 08/26/18 16:15 Globulin 3.6 gm/dL 08/26/18 16:15 Albumin/Globulin Ratio 1.1 (1.1-1.8) 08/26/18 16:15 Triglycerides 221 mg/dL (35-160) H 08/28/18 07:00 Cholesterol 231 mg/dL (130-200) H 08/28/18 07:00 LDL Cholesterol Direct 133 mg/dL (0-129) H 08/28/18 07:00 HDL Cholesterol 51 mg/dL (29-60) 08/28/18 07:00 - Hospital Course Hospital Course: Pt seen and examined by me. I have reviewed the note of the medical insurance claims processor and I agree with it. I have discussed the assessment and plan with the resident. I have reviewed the medications and the last labs.
[2018-08-28 07:57] LABS: HDL CHOLESTEROL 51 mg/dL (29-60)
[2018-08-28 08:08] LABS: LDL CHOLESTEROL 133 mg/dL (0-129)
--- NOTE | 2018-08-28 08:33 | HP ---
DATE OF EXAM: 08/27/2018 Addendum to history and physical dictated by Resident. NOTE: The patient is an 83-year-old, who came to emergency room after a syncope episode. She has hypertension, atrial fibrillation, generalized osteoarthritis. Workup is in the progress. Carotid ultrasound is unremarkable. CT scan of the head is negative. Echocardiogram showed dilated normal right atrium, moderate pulmonary hypertension. Currently, the patient is on rate control medications. She is on Coumadin and she seems to be therapeutic. Physical therapy evaluation will be done. Follow up CBC, PT, INR and make disposition plan in a.m. Jaylyn Huston MD
[2018-08-28] MEDS: Metoprolol Succinate 100 mg XL Tab PO SCH (09:46)
[2018-08-28] MEDS: diltiaZEM 240 mg/24 Hours CD Cap PO SCH (09:47)
[2018-08-28 09:48] VITALS: BP 131/81
[2018-08-28 10:33] VITALS: PULSE 85
--- NOTE | 2018-08-28 11:06 | PN ---
DATE: 08/28/2018 SUBJECTIVE: The patient is seen walking on telemetry. She is currently comfortable. She has had no recurrent lightheadedness. Her current medications include Cardizem CD 240 mg daily, Coumadin, Toprol XL 100 mg daily. OBJECTIVE: GENERAL: She is an elderly woman who is comfortable at the present time. VITAL SIGNS: Blood pressure 130/80 with a pulse of 80 in atrial fibrillation, respirations are 14. She is afebrile. HEENT: No JVD. CHEST: Few scattered rhonchi heard. HEART: PMI is normal position with a soft systolic murmur at lower left sternal border. ABDOMEN: Soft, nontender with normoactive bowel sounds. EXTREMITIES: No edema. DIAGNOSTIC DATA: Echocardiogram revealed dilated right atrium with moderate tricuspid regurgitation. Borderline concentric LVH, normal LV size and systolic function. The estimated RVSP was 51 mmHg. White count 13.1, hematocrit 13.6 and 41.9 with platelet count of 327,000. INR is 2.79. Cholesterol 231 with LDL 133, HDL 51 and triglycerides 221. IMPRESSION: Recent syncope, no clear obvious cardiac source at the present time. She was maintained on telemetry with no evidence of excessive bradycardia noted. Occasional pauses of up to 2.5 seconds were noted. However, her overall heart rate was in normal range and she was asymptomatic and neurology workup is apparently unremarkable as well. RECOMMENDATIONS: Discharge home at this time is advised. Her current medications will continue for now. If she has recurrent events in the future, a 30 day event monitor or implantable loop recorder can be considered. Fall precautions were reviewed with her. Outpatient followup will be arranged as needed. Leonard Sutton MD [facility]
--- NOTE | 2018-08-29 02:50 | DS ---
HOSPITAL COURSE: The patient was seen and examined. I do agree with the note of the medical hospital sales. I was involved in the plan of care. The patient had come in to the hospital because of fall. The patient denies hitting her head. She has atrial fibrillation, is on Coumadin. INR was therapeutic. The patient had carotid Doppler done that did not show any significant abnormalities. She was seen by Cardiology, Dr. Sutton, there was no clear source of the syncope. She was discharged home. She is going to continue her current medications. The patient does have osteoarthritis, is going to be using Tylenol. She denies any pain. She is going to follow with Dr. Garcia, her primary care doctor as an outpatient. Jose Giordano MD
== END 2018-08-28 12:06 | disposition home or self-care (01) ==
LOC: ED 14:56 → ERH 18:27 → 2RSO 08-27 01:27
PROVIDERS: ADMIT Internal Medicine Nephrology; ATTEND Internal Medicine Nephrology
DX: R55 Syncope and collapse (principal); I48.2 Chronic atrial fibrillation; H40.9 Unspecified glaucoma; I10 Essential (primary) hypertension; I65.29 Occlusion and stenosis of unspecified carotid artery; I67.2 Cerebral atherosclerosis; R42 Dizziness and giddiness; M19.90 Unspecified osteoarthritis, unspecified site; S09.90XA Unspecified injury of head, initial encounter; Z79.01 Long term (current) use of anticoagulants; Z79.899 Other long term (current) drug therapy; Z82.49 Family history of ischemic heart disease and other diseases of the circulatory system; Z86.73 Personal history of transient ischemic attack (TIA), and cerebral infarction without residual deficits; Z88.5 Allergy status to narcotic agent
CPT/HCPCS: 36415; 70450; 71045; 80053; 80061; 82948; 83735; 84484; 85025; 85610; 85730; 93005; 93306; 93880; 97116; 97161; 99285; G0378; G8978; G8979

== ENCOUNTER 2018-09-12 10:23 | Outpatient (CLI) | payer MEDICARE | END 2018-09-12 10:24 | disposition home or self-care (01) | LOC: RAD 10:23 | DX: W19.XXXA Unspecified fall, initial encounter (principal); M48.061 Spinal stenosis, lumbar region without neurogenic claudication; N64.4 Mastodynia ==